=== PATIENT | female | born 1980 | race African-American/Black ===

== ENCOUNTER 2017-09-02 18:29 | Emergency (ER) | END 2017-09-02 19:56 | disposition home or self-care (01) ==

== ENCOUNTER → 2017-09-27 12:16 | Emergency (ER) | END | disposition left against medical advice (07) ==

== ENCOUNTER 2017-12-13 14:14 | Emergency (ER) | END 2017-12-13 18:18 | disposition home or self-care (01) ==

== ENCOUNTER 2018-03-05 16:37 | Emergency (ER) | END 2018-03-05 19:11 | disposition home or self-care (01) ==